=== PATIENT | male | born 1965 | race Caucasian/White ===

== ENCOUNTER 2018-02-28 22:38 | Emergency (ER) | payer SELFPAY ==
[~2018-02-28] VITALS: Ht 182.9 cm; Wt 68.0 kg
[2018-03-01] MEDS ORDERED: TETANUS, DIPHTHERIA, PERTUSSIS VAC/PF 0.5ML (>7YR OLD) IM ONE (01:45)
[2018-03-01] MEDS ORDERED: BACITRACIN ZINC OINT UDPKT TOP ONE (01:45)
[2018-03-01] MEDS ORDERED: LIDOCAINE HCL 1% 20ML VIAL (Pyxis) INJ INFIL ONE (03:15)
[2018-03-01] MEDS ORDERED: LIDOCAINE HCL/PF 1% 10 MG/ML 5ML VIAL IJ SCH (03:23)
[2018-03-01] MEDS ORDERED: SODIUM CHLORIDE 0.9% 1,000 ML IV ONE (06:00)
[2018-03-01 06:04] LABS: BASOPHILS % 1.3 % (0.0-2.0); EOSINOPHILS % 1.9 % (0.0-5.0); HEMATOCRIT. 43.1 % (42.0-52.0); HEMOGLOBIN. 15.1 g/dL (14.0-18.0); LYMPHOCYTES % 30.7 % (20.0-50.0); MEAN CORPUSCULAR HEMOGLOBIN 35.4 pg (28.0-32.0); MEAN CORPUSCULAR VOLUME 100.6 fL (80.0-94.0); MEAN PLATELET VOLUME 8.1 fl (7.4-10.4); NEUTROPHILS % 52.1 % (40.0-76.0); PLATELET 112 x1000/uL (130-400); RED BLOOD CELL COUNT 4.28 mill/uL (4.7-6.1)
[2018-03-01 06:07] LABS: CHLORIDE 102 mEq/L (98-107)
[2018-03-01 06:17] LABS: ETHANOL BLOOD 296 mg/dL
[2018-03-01] MEDS ORDERED: IBUPROFEN 600MG TABLET PO ONE (07:00)
[2018-03-01 09:00] VITALS: BP 129/78
== END 2018-03-01 09:21 | disposition home or self-care (01) ==
LOC: ER 22:44
DX: S71.111A Laceration without foreign body, right thigh, initial encounter (principal); F10.129 Alcohol abuse with intoxication, unspecified; Y90.8 Blood alcohol level of 240 mg/100 ml or more; W26.8XXA Contact with other sharp object(s), not elsewhere classified, initial encounter; Y93.39 Activity, other involving climbing, rappelling and jumping off; Y92.89 Other specified places as the place of occurrence of the external cause; Y99.8 Other external cause status
CPT/HCPCS: 12002; 36415; 73552; 80053; 85025; 90471; 90715; 99285; G0482; J3490; J7030; X7700; Z7610

== ENCOUNTER 2018-03-08 09:16 | Emergency (ER) | payer SELFPAY ==
[~2018-03-08] VITALS: Ht 162.6 cm; Wt 67.0 kg
[2018-03-08 09:21] VITALS: BP 169/99
[2018-03-08] MEDS ORDERED: BACITRACIN ZINC OINT UDPKT TOP ONE (10:45)
== END 2018-03-08 10:43 | disposition home or self-care (01) ==
LOC: ER 09:16
DX: Z48.02 Encounter for removal of sutures (principal)
CPT/HCPCS: 99283